=== PATIENT | female | born 1950 | race Caucasian/White ===

== ENCOUNTER → 2017-04-02 | Outpatient (CLI) | payer OTHER ==
[~2017-04-02] MED LIST: ADULT LOW DOSE81 MG OR; AMOXICILLIN; CALCIUM; LORTAB 7.5/5001 TA3; MULTIVITAMINS OR
--- NOTE | ~2017-04-02 | EKG ---
[address] [address] ELECTROCARDIOGRAM REPORT Name: RINKU HERRERA Room #: REG CL Jame#: [id number] Admission: 04/02/17 Attend Phys: Saud Ross Discharge: Date of : 46 Report #: [id number] THIS REPORT FOR: //name// [facility] Test Date: 2017-04-02 Test Time: 10:55:47 Pat Name: RINKU HERRERA Department: Room: Gender: F Survey Technician: Tomas NEWTON : 1950 Requested By: Saud Geller Order Number: [id number] MD: Russel Pinedo Measurements Intervals [place] Rate: 69 P: -4 DE: 163 QRS: 58 QRSD: 86 T: 27 QT: 390 QTc: 418 Interpretive Statements Sinus rhythm Left ventricular hypertrophy Compared to ECG 12/15/2009 13:09:52 Sinus bradycardia no longer present Early repolarization no longer present Electronically Signed On 04-02-2017 16:50:51 [employer]A [employer] HEL[employer] by Russel Pinedo [email or web address] <ELECTRONICALLY SIGNED> By: Russel Pinedo MD 04/02/17 0424 1055 1055 Russel Pinedo MD /[place]
[2017-04-02 10:17] LABS: CALCIUM 9.9 mg/dL (8.5-10.1); POTASSIUM 4.1 mmol/L (3.5-5.1)
== END ==
LOC: NEURO 09:41 → CV 09:41
PROVIDERS: Orthopaedic Surgery Sports Medicine
DX: Z01.818 Encounter for other preprocedural examination (principal); E87.79 Other fluid overload; I10 Essential (primary) hypertension

== ENCOUNTER → 2020-10-09 | Outpatient (CLI) | payer OTHER ==
[~2020-10-09] MED LIST changes: +ASPIRIN EC81 M1 PO; +CALCIUM 600 +1 EA16 PO; +LEXAPRO 10 MG T10 M2 PO; +MULTI VITAMIN1 EACH PO; +TRIAMTERENE-HC1 EAC2 PO; +ZESTRIL40 MG PO
[2020-10-09 08:49] LABS: URINE BILIRUBIN NEGATIVE (Negative); URINE BLOOD NEGATIVE (Negative); URINE CLARITY CLEAR; URINE COLOR YELLOW; URINE GLUCOSE-RANDOM* NEGATIVE (Negative); URINE KETONES NEGATIVE (Negative); URINE LEUKOCYTES-REFLEX NEGATIVE (Negative); URINE NITRITE-REFLEX NEGATIVE (Negative); URINE PROTEIN (DIPSTICK) NEGATIVE (Negative); URINE SPECIFIC GRAVITY 1.025 (1.005-1.035); URINE UROBILINOGEN 0.2 E.U./dl (0.2-1.0)
[2020-10-09 08:51] LABS: HEMATOCRIT 35.4 % (37.0-47.0); HEMOGLOBIN 12.1 gm/dL (12.0-15.0); MCH 30.7 pg (26.0-34.0); MCHC 34.2 g/dL (28.0-37.0); MCV 89.7 fL (80.0-100.0); RBC 3.94 mil/uL (4.20-5.00); WBC 4.1 thou/uL (4.0-11.0)
[2020-10-09 08:59] LABS: CALCIUM 9.7 mg/dL (8.5-10.1); POTASSIUM 4.1 mmol/L (3.5-5.1)
[2020-10-09 09:10] LABS: INR 0.96; PROTIME 10.5 Seconds (10.5-12.1)
--- NOTE | 2020-10-09 09:51 | EKG ---
[address] [address] ELECTROCARDIOGRAM REPORT Name: KAHLILSYDNEERINKU [id number]: 10/09/20 Attend Phys: Kendall Alston MD Discharge: Date of : 46 Report #: [id number] [facility] Test Date: 2020-10-09 Test Time: 08:45:12 Pat Name: RINKU HERRERA Department: Room: Gender: F Stock Trader: NANCY MENDOZA : 1950 Requested By: Kendall Alston Order Number: [id number] MD: Azar Nichols Measurements Intervals [place] Rate: 70 P: 28 TN: 149 QRS: 38 QRSD: 91 T: 28 QT: 390 QTc: 421 Interpretive Statements Sinus rhythm Left ventricular hypertrophy Compared to ECG 04/02/2017 10:55:47 No significant changes Electronically Signed On 10-09-2020 9:51:16 CDT by Azar Nichols [email or web address] <ELECTRONICALLY SIGNED> By: Azar Nichols MD, [facility] 10/09/2051 844 4 Azar Nichols MD, FACC /EPI
== END ==
LOC: PAC 07:57
PROVIDERS: ATTEND Orthopaedic Surgery
DX: Z01.812 Encounter for preprocedural laboratory examination (principal); Z01.810 Encounter for preprocedural cardiovascular examination; I51.7 Cardiomegaly; M17.11 Unilateral primary osteoarthritis, right knee; I10 Essential (primary) hypertension

== ENCOUNTER 2020-10-15 08:15 | Observation (INO) | payer OTHER ==
[~2020-10-15] VITALS: Ht 167.6 cm; Wt 66.2 kg
[2020-10-15 09:23] VITALS: BP 116/58
--- NOTE | 2020-10-15 15:54 | NUR ---
ASSESSMENT: CM REVIEWED CHART AND SPOKE WITH PATIENT AND HER AT THE BEDSIDE. PT IS ALERT AND ORIENTED X4. PT IS S/P R TKA. PT REPORTS THAT SHE LIVES IN A HOUSE WITH HER AND HAS ABOUT2 STEPS WITH NO HANDRAILS TO ENTER THE HOME THROUGH THE GARAGE. PT REPORTS LIVING IN A SPLIT LEVEL HOME AND HAS 2 SETS OF STEPS WITH ABOUT 7 STEPS WITH HANDRAILS. PT REPORTS THAT SHE HAS A CANE AT HOME WELL TWO WALKERS. PT REPORTS THAT SHE HAS OUTPATIENT THERAPY SET UP [place]CROSS FROM [facility] TO BEGIN ON THURSDAY BUT CANNOT RECALL THE NAME OF THE PLACE. PT WILL BEGIN TO WORK WITH THERAPIES TOMORROW AND CM WILL CONTINUE TO FOLLOW TO ASSIST NEEDED. IS SUPPORTIVE AND AVAILABLE TO HELP NEEDED.
--- NOTE | 2020-10-15 16:24 | NUR ---
ASSESSMENT: CM REVIEWED CHART AND SPOKE WITH PATIENT AT THE BEDSIDE. PT IS ALERT AND ORIENTED X4. PT IS S/P R TKA. PT LIVES IN A HOUSE WITH HER . PT REPORTS HAVING ABOUT 2 STEPS TO ENTER THE HOME WITH NO HANDRAILS. PT REPORTS ONCE INSIDE ALL HER NEEDS ARE ON THE MAIN LEVEL. PT REPORTS HAVING NO NEED TO GO INTO THE BASEMENT. PT REPORTS THAT SHE HAS A CANE AND TWO WALKERS. PT STATES THAT SHE HAS OUTPATIENT THERAPY ARRANGED FOR THURSDAY AT A PLACE NEAR [place] BUT UNSURE OF THE NAME. PT WILL BEGIN TO WORK WITH THERAPY TOMORROW AM. CM WILL CONTINUE TO FOLLOW TO ASSIST NEEDED.
[2020-10-15 19:18] VITALS: BP 118/60
--- NOTE | 2020-10-16 02:40 | NUR ---
ASUMED PT CARE AT 1900.PT'S SPOUSE AT HER BEDSIDE AT SHIFT CHANGE.PT UP WITH ASSIST/GB AND WALKER X2 NOWTO THE BSC,SUKHJINDER WELL.PT CONT ON HER IVF AND IV ABX ORDERED.PT C/O PAIN,MANAGED WITH MED.POLAR PACK/SCD/SANDRA HOSE IN PLACE.PT ABLE TO MAKE HER NEEDS KNOWN.CALL LIGHT WITHIN REACH.
[2020-10-16 04:09] VITALS: BP 114/55
[2020-10-16] MEDS ORDERED: HYDROCODON-ACE1 EAC7 PO (07:35)
[2020-10-16] MEDS ORDERED: MS CONTIN15 MG PO (07:36)
[2020-10-16] MEDS ORDERED: TRI-BUFFERED A325 M1 PO (07:36)
--- NOTE | 2020-10-16 07:44 | O ---
[facility] [place] [address] OPERATIVE REPORT Name: RINKU HERRERA Room #: 437-P [facility] Margarita Kilgore#: [id number] Admission: 10/15/20 Attend Phys: Kendall Alston MD Discharge: Date of : 46 Report #: [id number] THIS REPORT FOR: cc: Kenny Hendrix MD, Neal A. MD Abraham,Kendall Cope MD ~ DATE OF SERVICE: 10/15/2020 PREOPERATIVE DIAGNOSIS: Right knee osteoarthritis. POSTOPERATIVE DIAGNOSIS: Right knee osteoarthritis. PROCEDURE: Right total knee arthroplasty using Navio robotic assistance. SURGEON: Kendall Alston MD. ANESTHESIA: LMA with adductor canal block. IMPLANTS: A [employer]hew size 5 cobalt chrome Journey II BCS femur, size 4 tibia, size 10 polyethylene and size 32 patella. TOURNIQUET TIME: 57 minutes. ESTIMATED BLOOD LOSS: 25 mL COMPLICATIONS: None. SPECIMENS: None. CONDITION UPON LEAVING THE OR: Stable. INDICATIONS FOR PROCEDURE: The patient is a 70-year-old female with severe right knee osteoarthritis. She had failed conservative measures for this and after discussion with her, she elected for right total knee arthroplasty. DESCRIPTION OF PROCEDURE: Risks, benefits, alternatives, complications were discussed in detail with the patient including but not limited to risk of anesthesia, risk of damage to nerves, arteries, blood vessels, risk for infection, bleeding, DVT, PE, and need for reoperation. Informed consent was obtained from the patient. The right knee was appropriately marked in the preoperative holding area. IV Ancef was given for preoperative antibiotics. She was brought to the operating room and placed in supine position on the operating room table. LMA anesthesia was induced without complication. Tourniquet was placed on the right thigh. Right lower extremity was prepped and draped in normal sterile fashion. Timeout was performed properly identifying the patient and procedure as well as the instrumentation and implants. All in [address] [address] OPERATIVE REPORT Name: RINKU HERRERA Room #: 437-P [facility] MSaraR.#: [id number] Admission: 10/15/20 Attend Phys: Kendall Alston MD Discharge: Date of : 46 Report #: [id number] the operating room in agreement. Right lower extremity was exsanguinated and tourniquet inflated. Tourniquet time was 57 minutes. Standard midline approach to the knee was made with 10 blade through the skin. Dissection was taken down sharply to the fascia and deep flaps were developed medially and laterally. Fresh 10 blade was used to make a medial parapatellar arthrotomy and the knee was inspected. There was severe medial compartment osteoarthritis with moderate lateral and patellofemoral compartment osteoarthritis. ACL and PCL were removed sharply. Reference pins were placed in the femur and the tibia. The knee was then digitally mapped using the WatchGuard robotic system. Intraoperative plan was made and we sized the size 5 femur, size 4 tibia and a 10 spacer. After acceptance of the intraoperative plan, the distal femoral cut was made with Navio bur. Distal femoral cutting block was pinned in place and chamfer cuts were made. Attention was turned to the tibia. Remainder of the menisci removed with Bovie cautery. Tibial resection guide was pinned in place using Navio for placement and tibial resection was made. Flexion and extension gaps were checked and found to be tight medially and in extension. Medial osteophyte was removed from the tibia and a limited medial release was performed using the pie crust technique. This balanced the knee well. Tibia sized, found to be a size 4. Size 4 tibial trial was placed, pinned and punched. A size 5 femoral trial was placed and box cut was made. This was then trialed with a size 9 and then a size 10 polyethylene. The size 10 polyethylene demonstrated 1-2 mm of laxity medially and laterally throughout range of motion of the knee. A 9 mm of bone was resected from the posterior surface of the patella and a size 32 patellar trial button was placed, knee was taken through range of motion, found to be stable, found to have good patellar tracking. Trial components were removed. Bone ends were thoroughly irrigated with normal saline. Final size 4, tibia size 5 Journey II BCS cobalt chrome femur and a size 32 patella were cemented into place using standard cementation techniques. While the cement cured, a periarticular injection consisting of morphine, ropivacaine, epinephrine, Toradol was placed around the knee joint capsule. After the cement cured, the tourniquet was deflated. Hemostasis was obtained with Bovie cautery. Final size 10 polyethylene was placed. A gram of vancomycin was placed deep in the joint. Fascia was closed with 0 Vicryl. Skin was closed with 2-0 Vicryl, 3-0 Monocryl. Dermabond and a SHE dressing was applied. The patient tolerated this procedure well and went to recovery room under care of anesthesia postoperatively. <ELECTRONICALLY SIGNED> By: Kendall Alston MD 10/16/20 0744 [id number] [id number] Kendall Alston MD /nt
--- NOTE | 2020-10-16 10:46 | NUR ---
ASSUMED PT CARE THIS AM. PT IS ALERT & ORIENTED X4. PT HAS IV SITE ON L AC. PT IS UP WITH ASSIST X1 WITH GAITBELT AND WALKER TO BEDSIDE COMMODE. PT HAS [employer], SHE DRESSING, POLAR PACK AND SCD. PT C/O OF ITCHING AND PAIN AND GIVEN PAIN BENARYL PRIOR GIVING PAIN MEDICATION PER PT REQUEST. PT AT THE BEDSIDE. PT WAS WORKING WITH PHYSICAL THERAPY THIS AM. PT TOLERATED MEDICATION AND DIET WELL. NO C/O OF NAUSEA AND VOMITING THIS AM. PT ON THE BED, BED ON THE LOWEST POSITION, SIDE RAILS UP, CALL LIGHT WITHIN REACH. WILL CONTINUE TO MONITOR PT. FOLLOW POC.
--- NOTE | 2020-10-16 11:15 | NUR ---
ON-GOING ASSESSMENT: CM REVIEWED CHART. PT WORKED WITH PHYSICAL THERAPY THIS AM AND WAS BUCKLING SO UNABLE TO WORK ON STEPS THIS AM. THERAPY IS TO SEE PATIENT AGAIN IN THE PM. PT ALREADY HAS NEEDED EQUIPMENT AT HOME AND OUTPATIENT THERAPY ARRANGED. CM WILL CONTINUE TO FOLLOW, PT SHOULD HAVE NO NEEDS FROM CM PRIOR TO DISCHARGE.
[2020-10-16 20:05] VITALS: BP 117/58
--- NOTE | 2020-10-17 03:59 | NUR ---
PT'S SPOUSE AT THE BEDSIDE AT START OF SHIFT.PT C/O PAIN TO HER R KNEE,MANAGED WITH MED.PT UP WITH ASSIST X1/GB /WALKER TO THE BSC.NO BM TODAY.DRSG DRY AND INTACT.PT LOOKING FORWARD TO BE DC'D LATER TODAY.CALL LIGHT WITHIN REACH.
[2020-10-17 04:15] VITALS: BP 122/69
--- NOTE | 2020-10-17 11:54 | NUR ---
ASSUMED PT CARE THIS AM. PT IS ALERT & ORIENTED X4. PT HAS IV SITE ON L AC SALINE LOCKED. PT IS UP WITH ASSIST X1 WITH GAITBELT AND WALKER TO THE BEDSIDE COMMODE. PT HAS [employer], SHE DRESSING, POLAR PACK AND SCD. PT WAS WORKING WITH PHYISCAL THERAPY AND WILL BE WORKING THIS AFTERNOON. AWAITING FOR PHYSICAL THERAPY PERSPECTIVE REGARGING FOR SAFE TO DC THIS AFTERNOON. PT ON THE CHAIR WITH ALARMS ON. CALL LIGHT WITHIN REACH. WILL CONTINUE TO MONITOR PT. FOLLOW POC.
[2020-10-17 13:41] VITALS: BP 119/69
--- NOTE | 2020-10-17 14:37 | NUR ---
ON-GOING ASSESSMENT: CM REVIEWED CHART. PT HAS ORDERS TO DISCHARGE HOME TODAY. PT ALREADY HAD OUTPATIENT THERAPY ARRANGED AND HAS NEEDED EQUIPMENT AT HOME. PTS IS SUPPORTIVE. CASE CLOSED.
== END 2020-10-17 14:29 | disposition home or self-care (01) ==
LOC: OR 08:15 → TBA 08:16 → OR 11:22 → 4S 14:30 → OR 19:54 → 4S 19:55
PROVIDERS: ADMIT Orthopaedic Surgery; ATTEND Orthopaedic Surgery
DX: M17.11 Unilateral primary osteoarthritis, right knee (principal); E78.00 Pure hypercholesterolemia, unspecified; Z79.899 Other long term (current) drug therapy
CPT/HCPCS: 50010; 50101; 50415; 50954; 51130; 51225; 51320; 52001; 52282; 53000; 53078; 54118; 56527; 56528; 57095; 57103; 57110; 57127; 57179; 57180; 58239; 62110; 62900; 64042; 70005